=== PATIENT | male | born 1975 | race Caucasian/White ===

== ENCOUNTER 2020-07-31 08:57 | Outpatient (REF) | payer OTHER, SELFPAY ==
[2020-07-31 09:38] LABS: MANUAL DIFF FLAG NO
[2020-07-31 09:41] LABS: Basophils Percent Auto 0.4 % (0-2); Eosinophils Absolute Auto 0.3 X10*3/uL (0.0-0.4); Hematocrit 45.2 % (42-52); Hemoglobin 15.3 g/dl (14.0-18.0); Imm Gran Abs Auto 0.04 X10*3/uL (0.00-0.03); Imm Gran Pct Auto 0.5 % (0.0-0.4); Lymphocytes Absolute Auto 3.2 X10*3/uL (1.2-4.9); Lymphocytes Percent Auto 37.6 % (20-40); Mean Corpuscular HGB Conc 33.8 g/dl (31.0-36.0); Mean Corpuscular Hemoglobin 29.4 pg (27.0-33.0); Mean Corpuscular Volume 86.8 fL (80-98); Mean Platelet Volume 11.5 fL (9.4-12.4); Monocytes Absolute Auto 0.6 X10*3/uL (0.1-1.2); Monocytes Percent Auto 6.6 % (2-11); Neutrophils Absolute Auto 4.4 X10*3/uL (2.0-8.3); Neutrophils Percent Auto 51.9 % (45-73); Platelet Count 227 X10*3/uL (160-400); Red Blood Count 5.21 X10*6/uL (4.60-5.80); Red Cell Distribution Width 13.1 % (11.0-16.0); White Blood Count 8.4 X10*3/uL (4.8-10.8)
[2020-07-31 10:21] LABS: Alanine Aminotransferase 47 U/L (0-40); Albumin Level 4.3 g/dL (3.5-5.0); Alkaline Phosphatase 56 U/L (39-117); Anion Gap 11 (12-20); Aspartate Amino Transferase 26 U/L (5-37); Bilirubin Total 0.8 mg/dL (0.0-1.0); Blood Urea Nitrogen 11 mg/dL (9-16); Calcium 8.7 mg/dL (8.4-10.2); Carbon Dioxide 28 mmol/L (22-29); Chloride 104 mmol/L (96-108); Cholesterol 164 mg/dL; Estimated Glomerular Filt Rate > 60; Glucose Random 131 mg/dL (60-115); HDL Cholesterol 34 mg/dL; LDL Cholesterol Calculated 90 mg/dl; Potassium 4.2 mmol/l (3.3-5.1); Sodium 139 mmol/L (135-145); Total Protein 7.3 g/dL (6.5-8.0); Triglycerides 201 mg/dL
[2020-07-31 10:35] LABS: Free T4 (Free Thyroxine) 1.06 ng/dL (0.71-1.85); Thyroid Stimulating Hormone 0.86 uIU/mL (0.32-4.0)
[2020-07-31 10:46] LABS: HBS Num1 2.84 mIU/mL (0-7.99); HBc Num1 0.04 S/CO (0.00-0.79); HBsAGNum1 0.19 S/CO (0.00-0.99); Hepatitis B Core Antibody Nonreactive (Nonreactive); Hepatitis B Surface Antigen Negative (Negative); ~HepC Num1 0.07 S/CO (0.00-0.79); ~Hepatitis B Surface Antibody NONREACTIVE (Nonreactive); ~Hepatitis C Antibody Nonreactive (Nonreactive)
== END 2020-07-31 08:58 | disposition home or self-care (01) ==
LOC: HO.LAB 08:57
PROVIDERS: Visit Provider Internal Medicine
DX: N28.9 Disorder of kidney and ureter, unspecified (principal); R73.02 Impaired glucose tolerance (oral); E78.1 Pure hyperglyceridemia; E78.00 Pure hypercholesterolemia, unspecified; R79.89 Other specified abnormal findings of blood chemistry
CPT/HCPCS: 36415; 80053; 80061; 84439; 84443; 85025; 86704; 86706; 86803; 87340

== ENCOUNTER 2020-09-04 08:07 | Outpatient (REF) | payer OTHER, SELFPAY ==
--- NOTE | 2020-09-04 08:14 | US_ITS ---
EXAMINATION: US COMPLETE ABDOMEN WITH LIVER ELASTOGRAPHY CLINICAL INFORMATION: Abnormal liver function tests COMPARISON: None. TECHNIQUE: Real-time imaging of the abdominal viscera. Noninvasive ultrasound liver fibrosis assessment is performed using Lorie ElastPQ point quantification shear wave elastography (pSWE) with a 5 MHz transducer. Multiple elastography samples are obtained. FINDINGS: PANCREAS: The head of the pancreas is normal-appearing. The body and tail are not well visualized due to bowel gas. ABDOMINAL AORTA: Not well visualized due to bowel gas INFERIOR VENA CAVA: Visualized portions are normal. LIVER: Liver echotexture is increased probably representing fatty infiltration. There is a hypoechoic area adjacent to the gallbladder, characteristic location of focal fatty sparing. No focal lesion or intrahepatic biliary duct dilatation. The liver is normal in size and shape. The right lobe measures 16 cm in length. The left lobe measures 13 cm in length. The main portal vein is patent with appropriate hepatopedal flow Shear wave elastography provides a median stiffness of 1.3 m/s (reference: normal median stiffness is 0.81 - 1.22 m/s). The IQR/median stiffness to assess sampling precision is 0.3 (reference: optimal IQR/median stiffness is under 0.3). GALLBLADDER: Normal. The gallbladder is physiologically distended without evidence of stones, sludge, polyps, wall thickening or pericholecystic fluid. COMMON BILE DUCT: Normal in caliber measuring 0.4 cm in diameter. RIGHT KIDNEY: Normal. No hydronephrosis. No renal calculi or focal parenchymal lesions. The kidney measures 12.9 cm in maximum dimension. LEFT KIDNEY: Normal. No hydronephrosis. No renal calculi or focal parenchymal lesions. The kidney measures 11.3 cm in maximum dimension. SPLEEN: Normal. The spleen measures 10.5 cm in maximum dimension. FREE FLUID: None. US/US abdomen comp w elastography IMPRESSION: 1. Impression: Echogenic liver suggestive of fatty infiltration. Limited visualization of the pancreas and aorta. 2. Elastography: Metavir score F0 to F1 suggestive of normal to mild increased risk of developing liver fibrosis.
== END 2020-09-04 08:08 | disposition home or self-care (01) ==
LOC: HO.US 08:07
PROVIDERS: Visit Provider Internal Medicine
DX: R79.89 Other specified abnormal findings of blood chemistry (principal)
CPT/HCPCS: 76705; 76981

== ENCOUNTER 2020-09-17 14:35 | Outpatient (REF) | payer OTHER, SELFPAY ==
[2020-09-17 15:50] LABS: MANUAL DIFF FLAG NO
[2020-09-17 16:02] LABS: Basophils Percent Auto 0.4 % (0-2); Eosinophils Absolute Auto 0.3 X10*3/uL (0.0-0.4); Eosinophils Percent Auto 3.1 % (0-4); Hematocrit 46.2 % (42-52); Hemoglobin 15.4 g/dl (14.0-18.0); Imm Gran Abs Auto 0.03 X10*3/uL (0.00-0.03); Imm Gran Pct Auto 0.3 % (0.0-0.4); Lymphocytes Absolute Auto 3.1 X10*3/uL (1.2-4.9); Lymphocytes Percent Auto 34.3 % (20-40); Mean Corpuscular HGB Conc 33.3 g/dl (31.0-36.0); Mean Platelet Volume 12.1 fL (9.4-12.4); Monocytes Absolute Auto 0.7 X10*3/uL (0.1-1.2); Monocytes Percent Auto 7.4 % (2-11); Neutrophils Percent Auto 54.5 % (45-73); Platelet Count 236 X10*3/uL (160-400); Red Blood Count 5.31 X10*6/uL (4.60-5.80); Red Cell Distribution Width 12.6 % (11.0-16.0); White Blood Count 9.1 X10*3/uL (4.8-10.8)
[2020-09-18 09:33] LABS: Immunoglobulin E 111 kU/L (<OR=114)
== END 2020-09-17 14:36 | disposition home or self-care (01) ==
LOC: HO.LAB 14:35
PROVIDERS: PCP Internal Medicine; Visit Provider Internal Medicine Pulmonary Disease
DX: Z91.09 Other allergy status, other than to drugs and biological substances (principal)
CPT/HCPCS: 36415; 82785; 85025; 86003

== ENCOUNTER 2020-10-07 16:11 | Outpatient (REF) | payer OTHER, SELFPAY ==
--- NOTE | ~2020-10-07 | CT_ITS ---
EXAMINATION: CT CHEST WITHOUT CONTRAST CLINICAL INFORMATION: Solitary pulmonary nodule. COMPARISON: Chest 01/14/2020. TECHNIQUE: Multidetector volumetric CT imaging of the chest was done. Axial MIP volume rendering provided. Sagittal and coronal reformatted images were obtained. This CT examination was performed using dose optimization techniques as appropriate, variously including the following: *Automated exposure control *Adjustment of mA and/or kV according to patient size (this includes techniques or standardized protocols for targeted exams where dose is matched to indication/reason for exam; i.e. extremities or head) *Use of iterative reconstruction technique DLP: 239 mGy-cm FINDINGS: IMPROVEMENT SPEC: Unremarkable chest. LUNGS: The lungs are well expanded with minimal linear atelectatic changes left CP angle. No acute pneumonic consolidation, mass or pelvic nodules visualized. MEDIASTINUM: The thyroid lobes are somewhat symmetrical without any focal lesion seen. The central trachea and bronchi are widely patent. The heart size and great vessels are normal caliber. There is no pericardial effusion. No abnormal mediastinal mass or lymphadenopathy seen. PLEURA: There is no pleural effusion. No pleural mass or thickening. AXILLA: No lymphadenopathy. UPPER ABDOMEN: Visualized liver, spleen, pancreas and bilateral adrenal glands are unremarkable. OSSEOUS STRUCTURES: No lytic or sclerotic process seen. There is mild ventral degenerative spurring. CT/CT chest wo con IMPRESSION: Minimal atelectatic changes left CP angle. Otherwise unremarkable CT chest exam.
== END 2020-10-07 16:12 | disposition home or self-care (01) ==
LOC: HO.CT 16:11
PROVIDERS: Visit Provider Internal Medicine Pulmonary Disease
DX: R91.1 Solitary pulmonary nodule (principal)
CPT/HCPCS: 71250

== ENCOUNTER 2020-10-25 14:30 | Outpatient (REF) | payer OTHER, SELFPAY ==
--- NOTE | 2020-10-25 17:36 | PFT_ITS ---
Forced vital capacity is moderately decreased. FEV1, [id number] and MVV are markedly decreased. Post bronchodilator therapy, there is significant improvement in FEV1, [id number], and MVV. Total lung capacity normal. Residual volume moderately increased. Diffusion capacity is normal. CONCLUSION: Severe obstructive airway disorder. Partial reversibility after bronchodilator therapy is noted. Findings are consistent with asthma/COPD overlap syndrome. MD NEHAL Nascimento/MODL / [id number]
== END 2020-10-25 14:31 | disposition home or self-care (01) ==
LOC: HO.RESP 14:30
PROVIDERS: PCP Internal Medicine; Visit Provider Internal Medicine Pulmonary Disease
DX: J45.909 Unspecified asthma, uncomplicated (principal)
CPT/HCPCS: 94060; 94727; 94729

== ENCOUNTER 2020-11-04 09:17 | Outpatient (REF) | payer OTHER, SELFPAY | END 2020-11-04 09:18 | disposition home or self-care (01) | LOC: HO.MDS 09:17 | PROVIDERS: Visit Provider Internal Medicine Pulmonary Disease | DX: J45.50 Severe persistent asthma, uncomplicated (principal) | CPT/HCPCS: 96372; J2357 ==

== ENCOUNTER 2020-12-11 12:49 | Outpatient (REF) | payer OTHER, SELFPAY | END 2020-12-11 12:50 | disposition home or self-care (01) | LOC: HO.MDS 12:49 | PROVIDERS: PCP Internal Medicine; Visit Provider Internal Medicine Pulmonary Disease | DX: J45.50 Severe persistent asthma, uncomplicated (principal) | CPT/HCPCS: 96372; J2357 ==

== ENCOUNTER 2020-12-25 14:41 | Outpatient (REF) | payer OTHER, SELFPAY | END 2020-12-25 14:42 | disposition home or self-care (01) | LOC: HO.MDS 14:41 | PROVIDERS: PCP Internal Medicine; Visit Provider Internal Medicine Pulmonary Disease | DX: J45.50 Severe persistent asthma, uncomplicated (principal) | CPT/HCPCS: 96372; J2357 ==

== ENCOUNTER 2021-01-08 12:41 | Outpatient (REF) | payer OTHER, SELFPAY | END 2021-01-08 12:42 | disposition home or self-care (01) | LOC: HO.MDS 12:41 | PROVIDERS: PCP Internal Medicine; Visit Provider Internal Medicine Pulmonary Disease | DX: J45.50 Severe persistent asthma, uncomplicated (principal) | CPT/HCPCS: 96372; J2357 ==

== ENCOUNTER 2021-03-24 23:49 | Emergency (ER) | payer SELFPAY ==
--- NOTE | 2021-03-24 | ECG_ITS ---
Test Reason : CP Blood Pressure : / mmHG Vent. Rate : 073 BPM Atrial Rate : 073 BPM P-R Int : 204 ms QRS Dur : 092 ms QT Int : 406 ms P-R-T Axes : 033 -12 012 degrees QTc Int : 447 ms Sinus rhythm with occasional Premature ventricular complexes Otherwise normal ECG When compared to the previous EKG of 09 jan 2020, PVC now present Referred By: Generic ED Physician Electronically Signed By:DAVIS KENYON
--- NOTE | ~2021-03-24 | XR_ITS ---
EXAMINATION: XR CHEST CLINICAL INFORMATION: Chest pain COMPARISON: 11/09/2019 TECHNIQUE: Frontal view of the chest was obtained. FINDINGS: Normal symmetric lung volumes. No parenchymal consolidation. No pleural effusion. No pneumothorax. Cardiomediastinal silhouette and pulmonary vascularity are within normal limits. No acute osseous abnormalities. XR/XR chest 1V IMPRESSION: Unremarkable examination.
[2021-03-24 23:53] VITALS: BP 157/102; PULSE 74; RESP 18; TEMP 36.6; O2SAT 98; BMI 41.1
[2021-03-25] VITALS (7 sets, daily range): BP systolic 140–159; BP diastolic 85–96; PULSE 69–75; RESP 12–18; O2SAT 96–100
[2021-03-25 02:17] LABS: Basophils Percent Auto 0.3 % (0-2); Eosinophils Absolute Auto 0.2 X10*3/uL (0.0-0.4); Eosinophils Percent Auto 1.5 % (0-4); Hematocrit 45.7 % (42-52); Hemoglobin 15.4 g/dl (14.0-18.0); Imm Gran Abs Auto 0.11 X10*3/uL (0.00-0.03); Lymphocytes Absolute Auto 3.5 X10*3/uL (1.2-4.9); Lymphocytes Percent Auto 30.8 % (20-40); MANUAL DIFF FLAG NO; Mean Corpuscular HGB Conc 33.7 g/dl (31.0-36.0); Mean Corpuscular Hemoglobin 28.8 pg (27.0-33.0); Mean Corpuscular Volume 85.4 fL (80-98); Mean Platelet Volume 11.2 fL (9.4-12.4); Monocytes Absolute Auto 0.7 X10*3/uL (0.1-1.2); Monocytes Percent Auto 6.5 % (2-11); Neutrophils Absolute Auto 6.9 X10*3/uL (2.0-8.3); Neutrophils Percent Auto 59.9 % (45-73); Platelet Count 230 X10*3/uL (160-400); Red Blood Count 5.35 X10*6/uL (4.60-5.80); Red Cell Distribution Width 12.9 % (11.0-16.0); White Blood Count 11.4 X10*3/uL (4.8-10.8)
[2021-03-25 02:40] LABS: Troponin-I High Sensitivity 4.2 ng/L (<3.5-35.0)
[2021-03-25 02:54] LABS: Anion Gap 10 (12-20); Blood Urea Nitrogen 14 mg/dL (9-16); Calcium 9.3 mg/dL (8.4-10.2); Carbon Dioxide 30 mmol/L (22-29); Chloride 103 mmol/L (96-108); Creatinine Clr Calc Pharmacy 108.3; Estimated Glomerular Filt Rate > 60; Glucose Random 165 mg/dL (60-115); Potassium 4.5 mmol/L (3.3-5.1); Sodium 138 mmol/L (135-145)
--- NOTE | 2021-03-25 03:11 | PC.NURSE ---
electrocardiogram technician at bedside for orthos and DDimer.
[2021-03-25 03:14] LABS: Alanine Aminotransferase 35 U/L (0-40); Albumin Level 4.2 g/dL (3.5-5.0); Alkaline Phosphatase 65 U/L (39-117); Aspartate Amino Transferase 20 U/L (5-37); Bilirubin Direct 0.2 mg/dL (0.0-0.5); Bilirubin Total 0.4 mg/dL (0.0-1.0); Total Protein 7.5 g/dL (6.5-8.0)
[2021-03-25 03:26] LABS: D Dimer 218 NG/ML
--- NOTE | 2021-03-25 03:28 | ED.CHESTPAIN ---
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 This is been associated with 7/10 non radiating chest pain this is cry but is pressure and worsens with deep inspiration movement as well as reproducible on palpation. This is not been associated with any shortness of breath, new cough, fevers, chills, or GI symptoms. However, patient does report that he is somewhat nauseous with the lightheadedness. 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 Related Data Home Medications Medication Instructions Recorded Confirmed albuterol sulfate 90 mcg/actuation 2 puff INHALATION Q4-6H PRN 07/23/20 10/25/20 aerosol inhaler Previous Rx's Medication Instructions Recorded albuterol sulfate 2.5 mg INHALATION Q6H #180 ml 07/23/20 budesonide-formoterol HFA 80 2 puff INHALATION BID #10.2 g 07/23/20 mcg-4.5 mcg/actuation aerosol inhaler omalizumab 75 mg/0.5 mL 225 mg SUBCUT Q2W 28 Days #3 ml 10/02/20 subcutaneous syringe Allergies Allergy/AdvReac Type Severity Reaction Status Date / Time Penicillins [PCN] Allergy Unknown Anaphylaxis Verified 10/25/20 16:31 Review of Systems Review of Systems: Pertinent positives and negatives as stated in HPI 10 point review of systems is otherwise negative. [facility] Past Medical History Source: nursing notes reviewed Medical History Erectile dysfunction Fatty liver Hypertriglyceridemia Impaired glucose tolerance Obesity (BMI 30-39.9) Pulmonary nodule Surgical History H/O knee surgery Family History Family History Father Brain tumor Diabetes Hypertension Mother History of high blood pressure Hypertension Diabetes Daughter In good health Social History Social History Alcohol intake: current Alcohol intake frequency: holidays/special occasions only Alcohol type: beer Advance Directives: No Advance Directives Information Provided: No Physical Exam Vital Signs: Vital Signs: Last Vital Signs Temp 97.8 F 03/24/21 23:53 Pulse 73 03/25/21 04:59 Resp 14 03/25/21 04:59 BP 146/89 H 03/25/21 04:59 Pulse Ox 98 03/25/21 04:59 Body Mass Index 41.1 VITAL SIGNS: Reviewed. GENERAL: Well developed, well nourished, in no acute distress. HEAD: Normocephalic/atraumatic EYES: PERRLA, EOMI EARS: Ext canals without abnormality, TMs non-bulging and non-erythematous NOSE: Nares patent bilateral OROPHARYNX: no oral lesions noted, posterior pharynx clear NECK: Supple, no adenopathy LUNGS: Normal breath sounds. No adventitious sounds or accessory muscle use. SpO2<96> CARDIOVASCULAR: Regular rate and rhythm without noted murmurs, no JVD or lower extremity edema. ABDOMEN: Obese, Soft, non-tender, non-distended with bowel sounds. SKIN: Inspection of the skin reveals no rashes NEUROLOGIC: Alert and oriented x 4. Strength and sensation to light touch were grossly intact x 4, no facial asymmetry, no pronator drift, cranial nerves 2-12 are grossly intact.. Course Course Course Narrative: This is a 45-year-old male with history and clinical presentation suggestive of possible dehydration, but will rule out cardiopulmonary etiologies given body habitus. Low clinical suspicion for any intracranial pathologies as there are no focal findings to suggest or explain patient's dizziness. Review of all investigations negative for acute findings, orthostatics are negative, and serial troponins although detectable are not elevated and there are no acute changes on his EKG. Patient was informed of all results instructed to increase his fluid hydration and follow-up with his primary care provider. He was otherwise discharged in stable condition. MDM - Chest Pain Lab Data Result diagrams: 03/25/21 02:11 03/25/21 02:11 Labs: Lab Results 03/25/21 03/25/21 03/25/21 Range/Units 02:11 02:11 02:11 WBC 11.4 H (4.8-10.8) X10*3/uL RBC 5.35 (4.60-5.80) X10*6/uL Hgb 15.4 (14.0-18.0) g/dl Hct 45.7 (42-52) % MCV 85.4 (80-98) fL MCH 28.8 (27.0-33.0) pg MCHC 33.7 (31.0-36.0) g/dl RDW 12.9 (11.0-16.0) % Plt Count 230 (160-400) X10*3/uL MPV 11.2 (9.4-12.4) fL Immature Gran % (Auto) 1.0 H (0.0-0.4) % Neut % (Auto) 59.9 (45-73) % Lymph % (Auto) 30.8 (20-40) % Bullitt % (Auto) 6.5 (2-11) % Eos % (Auto) 1.5 (0-4) % Baso % (Auto) 0.3 (0-2) % Lymph # (Auto) 3.5 (1.2-4.9) X10*3/uL Bullitt # (Auto) 0.7 (0.1-1.2) X10*3/uL Eos # (Auto) 0.2 (0.0-0.4) X10*3/uL Baso # (Auto) 0.0 (0.0-0.2) X10*3/uL Abs Immat Gran (auto) 0.11 H (0.00-0.03) X10*3/uL Absolute Neuts (auto) 6.9 (2.0-8.3) X10*3/uL Absolute Nucleated RBC 0.000 (0.0-0.012) X10*3/uL Nucleated RBC % (auto) 0.0 (0.0-0.2) /100WBC D-Dimer NG/ML Sodium 138 (135-145) mmol/L Potassium 4.5 (3.3-5.1) mmol/L Chloride 103 (96-108) mmol/L Carbon Dioxide 30 H (22-29) mmol/L Anion Gap 10 L (12-20) BUN 14 (9-16) mg/dL Creatinine 1.12 (0.5-1.4) mg/dL Estim Creat Clear Calc 108.3 Estimated GFR > 60 Random Glucose 165 H (60-115) mg/dL Calcium 9.3 D (8.4-10.2) mg/dL Total Bilirubin 0.4 (0.0-1.0) mg/dL Direct Bilirubin 0.2 (0.0-0.5) mg/dL AST 20 (5-37) U/L ALT 35 (0-40) U/L Alkaline Phosphatase 65 (39-117) U/L Troponin I High Sens 4.2 (<3.5-35.0) ng/L Total Protein 7.5 (6.5-8.0) g/dL Albumin 4.2 (3.5-5.0) g/dL 03/25/21 03/25/21 Range/Units 03:13 04:58 WBC (4.8-10.8) X10*3/uL RBC (4.60-5.80) X10*6/uL Hgb (14.0-18.0) g/dl Hct (42-52) % MCV (80-98) fL MCH (27.0-33.0) pg MCHC (31.0-36.0) g/dl RDW (11.0-16.0) % Plt Count (160-400) X10*3/uL MPV (9.4-12.4) fL Immature Gran % (Auto) (0.0-0.4) % Neut % (Auto) (45-73) % Lymph % (Auto) (20-40) % Bullitt % (Auto) (2-11) % Eos % (Auto) (0-4) % Baso % (Auto) (0-2) % Lymph # (Auto) (1.2-4.9) X10*3/uL Bullitt # (Auto) (0.1-1.2) X10*3/uL Eos # (Auto) (0.0-0.4) X10*3/uL Baso # (Auto) (0.0-0.2) X10*3/uL Abs Immat Gran (auto) (0.00-0.03) X10*3/uL Absolute Neuts (auto) (2.0-8.3) X10*3/uL Absolute Nucleated RBC (0.0-0.012) X10*3/uL Nucleated RBC % (auto) (0.0-0.2) /100WBC D-Dimer 218 NG/ML Sodium (135-145) mmol/L Potassium (3.3-5.1) mmol/L Chloride (96-108) mmol/L Carbon Dioxide (22-29) mmol/L Anion Gap (12-20) BUN (9-16) mg/dL Creatinine (0.5-1.4) mg/dL Estim Creat Clear Calc Estimated GFR Random Glucose (60-115) mg/dL Calcium (8.4-10.2) mg/dL Total Bilirubin (0.0-1.0) mg/dL Direct Bilirubin (0.0-0.5) mg/dL AST (5-37) U/L ALT (0-40) U/L Alkaline Phosphatase (39-117) U/L Troponin I High Sens 4.6 (<3.5-35.0) ng/L Total Protein (6.5-8.0) g/dL Albumin (3.5-5.0) g/dL Discharge Plan Discharge Clinical Impression: Atypical chest pain, GERD (gastroesophageal reflux disease) Patient Disposition: Home, Self-Care Instructions: Diet for Stomach Ulcers and Gastritis (ED), Gastroesophageal Reflux Disease (ED) Additional Instructions: 1. Resume all home medications as prescribed. 2. Follow-up with your primary care provider by calling the office this morning to set up an appointment for re-evaluation further outpatient management. Return to the ER for acute worsening of symptoms. Prescriptions: No Action Xolair 75 mg/0.5 mL syringe 225 mg subcut Q2W 28 Days Qty: 3 RF: 12 albuterol sulfate [ProAir HFA] 90 mcg/actuation HFA aerosol inhaler 2 puff inhalation Q4-6H PRNRF: 0 albuterol sulfate 2.5 mg /3 mL (0.083 %) solution for nebulization 2.5 mg inhalation Q6H Qty: 180 RF: 0 budesonide-formoterol [Symbicort] 80-4.5 mcg/actuation HFA aerosol inhaler 2 puff inhalation BID Qty: 10.2 RF: 3 Referrals: Po,William Garcia MD [Primary Care Provider] - 2 days
--- NOTE | 2021-03-25 05:01 | PC.NURSE ---
Repeat Troponin obtained and sent.
[2021-03-25 05:26] LABS: Troponin-I High Sensitivity 4.6 ng/L (<3.5-35.0)
== END 2021-03-25 06:12 | disposition home or self-care (01) ==
PROVIDERS: Emergency Provider Student in an Organized Health Care Education/Training Program; PCP Internal Medicine
DX: R07.89 Other chest pain (principal); K21.9 Gastro-esophageal reflux disease without esophagitis; E66.9 Obesity, unspecified
CPT/HCPCS: 36415; 71045; 80048; 80076; 84484; 85025; 85379; 93005; 99284

== ENCOUNTER 2024-05-26 09:57 | Outpatient (REF) | payer SELFPAY ==
[2024-05-26 12:24] LABS: Alanine Aminotransferase 39 U/L (0-40); Albumin Level 4.3 g/dL (3.5-5.0); Alkaline Phosphatase 44 U/L (39-117); Anion Gap 11 (12-20); Aspartate Amino Transferase 23 U/L (5-37); Bilirubin Total 0.4 mg/dL (0.0-1.0); Blood Urea Nitrogen 13 mg/dL (9-16); Calcium 9.4 mg/dL (8.4-10.2); Carbon Dioxide 25 mmol/L (22-29); Chloride 108 mmol/L (96-108); Cholesterol 196 mg/dL (<200); Estimated Glomerular Filt Rate > 60; Glucose Random 124 mg/dL (60-115); HDL Cholesterol 35 mg/dL (>40); LDL Cholesterol Calculated 143 mg/dL (<100); Potassium 4.1 mmol/L (3.3-5.1); Sodium 140 mmol/L (135-145); Total Protein 7.5 g/dL (6.5-8.0); Triglycerides 90 mg/dL (<150)
[2024-05-26 12:47] LABS: Creatinine Urine 155.23 mg/dL; Microalbum/Creatinine Ratio Ur 22.5 ug/mg cr (<30)
== END 2024-05-26 09:58 | disposition home or self-care (01) ==
LOC: HO.HHCL 09:57
PROVIDERS: Visit Provider General Practice
DX: E11.9 Type 2 diabetes mellitus without complications (principal)
CPT/HCPCS: 36415; 80053; 80061; 82043; 82570

== ENCOUNTER 2024-12-08 16:43 | Outpatient (REF) | payer SELFPAY ==
--- OUTSIDE RECORDS SUMMARY | 2024-12-08 16:46 | XMS_ITS | Clinical Summary ---
Author Organization Formerly [facility] Address [address] [place] [address] Care Team Providers Care Carpet Installer Helper Name Role Phone Ellis Roger MD Unavailable [phone] Allergies Active Allergy Reactions Criticality Noted Date Comments Penicillins Shortness Of Breath High 04/03/2021 Medications Medication Sig Dispensed Refills Start Date End Date Status albuterol (PROVENTIL HFA; VENTOLIN HFA) 108 (90 Base) MCG/ACT inhalerIndications:M ild intermittent asthma without complication Inhale 2 puffs 4 times daily (every 6 hours) as needed for wheezing or shortness of breath. Do not start before February 02, 2024. 1 each 1 02/02/2024 Active aspirin enteric coated (ECOTRIN LOW STRENGTH) 81 MG EC tabletIndications:Ch est discomfort Take 1 tablet (81 mg total) by mouth daily. Do not start before February 02, 2024. 30 tablet 02/02/2024 Active ipratropium-albutero l (DUONEB) 0.5-2.5 mg/3 mL nebulizer solutionIndications: Mild intermittent asthma without complication,Intermi ttent asthma without complication, unspecified asthma severity Take 3 mL by nebulization 4 (four) times a day. Do not start before February 02, 2024. 90 mL 02/02/2024 Active Multiple Vitamin tabletIndications:Ty pe 2 diabetes mellitus with hyperglycemia, without long-term current use of insulin (HCC) Take 1 tablet by mouth daily. Do not start before February 02, 2024. 30 tablet 02/02/2024 Active PANTOprazole (PROTONIX) 40 MG EC tabletIndications:Ch est discomfort Take 1 tablet (40 mg total) by mouth every morning before breakfast. Do not start before February 02, 2024. 30 tablet 02/02/2024 Active budesonide-formotero l (SYMBICORT) 160-4.5 MCG/ACT inhalerIndications:I ntermittent asthma without complication, unspecified asthma severity Inhale 2 puffs 2 (two) times a day. 6 g 02/01/2024 Active predniSONE (DELTASONE) 20 MG tabletIndications:In termittent asthma without complication, unspecified asthma severity Take 2 tablets (40 mg total) by mouth daily. With food. 10 tablet 02/01/2024 Active metFORMIN (GLUCOPHAGE) 1000 MG tabletIndications:Ty pe 2 diabetes mellitus with hyperglycemia, without long-term current use of insulin (HCC) Take 1 tablet (1,000 mg total) by mouth 2 (two) times a day with meals. 60 tablet 04/03/2024 Active valsartan (DIOVAN) 80 MG tabletIndications:Es sential hypertension TAKE 1 TABLET BY MOUTH EVERY DAY 15 tablet 06/07/2024 Active fenofibrate (LOFIBRA) 54 MG tabletIndications:Mi xed hyperlipidemia TAKE 1 TABLET BY MOUTH EVERY DAY 30 tablet 06/22/2024 Active doxycycline (VIBRA-TABS) 100 MG tablet 1 tablet (100 mg total). 05/26/2024 Active Active Problems Problem Noted Date Diagnosed Date Moderate persistent asthma with exacerbation 10/2023 Hyponatremia 01/31/2024 GUILLE (acute kidney injury) 01/31/2024 Mixed hyperlipidemia 01/31/2024 Gastroesophageal reflux disease without esophagi tis 01/31/2024 Essential hypertension 01/31/2024 Verruca vulgaris of lower extremity 03/11/2023 Right thyroid nodule 07/03/2022 Mixed hyperlipidemia 07/03/2022 Snoring 07/03/2022 Paresthesia of left arm 2022 Chest discomfort 2022 Diabetes mellitus type II, non insulin dependent 2022 Scrotum, abscess 04/03/2021 Hyperglycemia 04/03/2021 Asthma 04/03/2021 Insomnia 04/03/2021 Skin lesion 04/03/2021 Resolved Problems Problem Noted Date Diagnosed Date Resolved Date Sepsis 01/31/2024 03/06/2024 Right middle lobe pneumonia 01/31/2024 03/06/2024 Sepsis 04/03/2021 11/11/2023 Encounters Date Type Department Care Team Description 09/24/[address] [id number] Edelmira Pandya MD Mixed hyperlipidemia from Last 3 Months Immunizations Name Administration Dates Next Due Covid-19 mRNA Bivalent Vacci ne - Pfizer 30 mcg/0.3mL 12+ 07/03/2022 Family History Medical History Relation Name Comments Diabetes Brother Hypertension Brother Brain tumor Father Tello Asthma Mother [place] Diabetes Mother [place] Hypertension Mother [place] Cancer Paternal Aunt metastatic can cer Relation Name Status Comments Brother Alive Father Tello Mother Ruba Paternal Aunt Social History Tobacco Use Types Packs/Day Years Used Date Smoking Tobacco: Former Smokeless Tobacco: Never Tobacco Cessation:Counseling Given: Not Answered Comments:Quit 10 years ago Alcohol Use Standard Drinks/Week Comments Not Currently 0 (1 standard drink = 0.6 oz pur e alcohol) [facility] Utilities Answer Date Recorded In the past 12 months has [employer], gas, oil, or water [employer] threatened to shut off services in your home? No 01/31/2024 AUDIT-C Answer Date Recorded Q1: How often do you have a drink containing alc ohol? Monthly or less 01/31/2024 Q2: How many drinks containi ng alcohol do you have on a typical day when you are drinking? 1 or 2 01/31/2024 Q3: How often do you have si x or more drinks on one occasion? Never 01/31/2024 Overall Financial Resource Strain (CARDIA) Answe r Date Recorded How hard is it for you to pa y for the very basics like food, housing, medical care, and heating? Not hard at all 01/31/2024 PHQ-2 Answer Date Recorded PHQ-2 Total Score 0 04/22/2021 Hunger Vital Sign Answer Date Recorded Within the past 12 months, y ou worried that your food would run out before you got the money to buy more. Never true 01/31/20 24 Within the past 12 months, t he food you bought just didn't last and you didn't have money to get more. Never true 01/31/2024 PRAPARE - Transportation Answer Date Re corded In the past 12 months, has l ack of transportation kept you from medical appointments or from getting medications? No 10/2023 In the past 12 months, has l ack of transportation kept you from meetings, work, or from getting things needed for daily living? No 01/31/2024 Housing Stability Vital Sign Answer Mychal e Recorded In the last 12 months, was t here a time when you were not able to pay the mortgage or rent on time? No 01/31/2024 [address] Lived in the Last Year Not on f ile 01/31/2024 In the last 12 months, was t here a time when you did not have a steady place to sleep or slept in a usp (including now)? No 01/31/2024 Sex and Gender Information Value Date Recorded Sex Assigned at Male 02/08/2023 3:06 PM EDT Gender Identity Male 02/08/2023 3:06 PM EDT Sexual Orientation Other 08/19/2023 9: 14 AM EST Last Filed Vital Signs Vital Sign Reading Time Taken Comments Blood Pressure 143/83 02/01/2024 8:32 AM EDT Pulse 80 02/01/2024 8:00 AM EDT Temperature 36.6 ??C (97.9 ??F) 02/01/2024 8:00 AM ED T Respiratory Rate 18 02/01/2024 8:00 AM EDT Oxygen Saturation 95% 02/01/2024 8:00 AM EDT Inhaled Oxygen Concentration - - Weight 115 kg (254 lb) 07/28/2024 2:38 PM EST Height 172.7 cm (5' 8 ) 07/28/2024 2:38 PM EST Body Mass Index 38.62 07/28/2024 2:38 PM EST Plan of Treatment Health Maintenance Due Date Last Done Comments Foot Exam 1987 DTaP/Tdap/Td Vaccines (1 - Tdap) 1996 Hepatitis B Vaccines (1 of 3 - 19+ 3-dose series) 1996 Pneumococcal Vaccine: Pediat juani (0-5 Years) and At-Risk Patients (6 to 49 Years) (1 of 2 - PCV) 1996 Ophthalmology Exam 08/06/2022 08/06/2021 Lipid Panel 09/18/2023 09/18/2022, 06/12/2022 Microalbumin/Creatinine Rati o Urine 09/18/2023 09/18/2022 Influenza Vaccine 03/30/2024 COVID-19 Vaccine (2023-09 5 season) 2024 07/03/2022, 07/11/2021, 06/13/2021 Hemoglobin A1C 08/01/2024 01/31/2024, 06/0 04/2023, 09/18/2022, Additional history exists Creatinine with GFR 01/30/2025 01/31/2024, 01/30/2024, 09/24/2023, Additional history exists Colonoscopy 01/06/2034 01/07/2024 Hepatitis C Virus Screening Completed 09/18/2022 HIV Screening Discontinued Procedures Procedure Name Priority Date/Time Associated Diagnosis Comments HEMOGLOBIN A1C WITH ESTIMATED AVERAGE GLUCOSE Routine 01/31/2024 6:55 AM EDT BASIC METABOLIC PANEL Routine 01/31/2024 6:55 AM EDT MICROALBUMIN, CREATININE, URINE, RANDOM Routine 09/18/2022 10:05 AM EST LIPID PANEL REFLEX DIRECT LDL Routine 09/18/2022 10:05 AM EST Mixed hyperlipidemia HEPATITIS C VIRUS (HCV) ANTIBODY Routine 09/18/2022 10:05 AM EST HX OPHTHALMOLOGY TESTING PROCEDURES Routine 08/06/2021 from Last 3 Months or Most Recently Relevant to Health Maintenance Results * (ABNORMAL) Hemoglobin A1c with Estimated Average Glucose (01/31/2024 6:55 AM EDT) Hemoglobin A1C 8.3(H) <5.7 % 01/31/2024 11:42 AM EDT [facility] Comment: A1c% ? Interpretation 5.7 - 6.0 ?Increase risk of diabetes 6.1 - 6.4 ?Higher risk of diabetes > or = 6.5 ?? Consistent with diabetes Diabetes Care, 33(Supp 1):S1-S61, 2010 Estimated Average Glucose 192 mg/dL 01/31/2024 11:42 AM EDT [facility] Blood specimen (specimen) Blood specimen / Unknown 01/31/2024 6:55 AM EDT 01/31/2024 7:37 AM EDT Ky Adam DO LAB BLOOD ORDERABLES [address] [address], [address] [address] * (ABNORMAL) Basic Metabolic Panel (01/31/2024 6:55 AM EDT) Glucose 261(H) 65 - 99 mg/dL 01/31/2024 8:47 AM [facility] Comment:Fasting: <100 mg/dL, Non-Fasting: <200 mg/dL (ADA 2004) Blood Urea Nitrogen (BUN) 16 8 - 21 mg/dL 01/31/2024 8:47 AM [facility] Creatinine 1.2 0.5 - 1.3 mg/dL 01/31/2024 8:47 AM [facility] eGFR 76 >59 01/31/2024 8:47 AM [facility] Comment:CKD-EPI (2020) in mL /min/1.73 sq meters. Sodium 134(L) 136 - 145 mmol/L 01/31/2024 8:47 AM [facility] Potassium 4.5 3.4 - 5.3 mmol/L 01/31/2024 8:47 AM [facility] Chloride 100 98 - 107 mmol/L 01/31/2024 8:47 AM [facility] CO2 18(L) 22 - 33 mmol/L 01/31/2024 8:47 AM [facility] Anion Gap 16 7 - 17 01/31/2024 8:47 AM [facility] Calcium 9.0 8.7 - 10.5 mg/dL 01/31/2024 8:47 AM [facility] BUN/Creatinine Ratio 13 10.0 - 25.0 Ratio 01/31/2024 8:47 AM [facility] Blood specimen (specimen) (Plasma/Serum) 01/31/2024 6:55 AM EDT 01/31/2024 7:36 AM EDT Ky Adam DO LAB BLOOD ORDERABLES Performing Organization Address City/[facility]/ZIP Co de Phone Number [address] [address], [address] [address] * (ABNORMAL) Lipid Panel Reflex Direct LDL (09/18/2022 10:05 AM EST) Cholesterol, Total 183 <200 mg/dL [facility] Cholesterol, HDL 36(L) > OR = 40 mg/dL [facility] Triglycerides 172(H) <150 mg/dL [facility] LDL Cholesterol 118(H) mg/dL (calc) [facility] Comment: Reference range: <100 Desirable range <100 mg/dL for primary prevention; ?? <70 mg/dL for patients with CHD or diabetic patients with > or = 2 CHD risk factors. LDL-C is now calculated using the Johnathan-Churchill calculation, which is a validated novel method providing better accuracy than the Friedewald equation in the estimation of LDL-C. Johnathan SS et al. MARTHA. 2013;310(19): 7293-7998 (http://education.Motorator/faq/PCY500) Cholesterol/HDL Ratio 5.1(H) <5.0 (calc) [facility] Non HDL Chol. (LDL+VLDL) 147(H) <130 mg/dL (calc) [facility] Comment: For patients with diabetes plus 1 major ASCVD risk factor, treating to a non-HDL-C goal of <100 mg/dL (LDL-C of <70 mg/dL) is considered a therapeutic option. Blood specimen (specimen) 09/18/2022 10:05 AM EST 09/18/2022 10:07 AM EST Narrative [facility] - 09/19/2022 7:41 PM EST FASTING:YES FASTING: YES Adalid Correia MD LAB BLOOD ORDERABLES [facility] [address] [facility] ([address]) [place] [address] * Microalbumin, Creatinine, Urine, Random (09/18/2022 10:05 AM EST) Creatinine, Urine, Random 109 20 - 320 mg/dL [facility] Microalbumin, Urine, Random 1.9 See Note: mg/dL [facility] Comment: Reference Range: Reference Range Not established Microalbumin/Creat inine Ratio 17 <30 mcg/mg creat [facility] Comment: The ADA defines abnormalities in albumin excretion as follows: Albuminuria Category ?Result (mcg/mg creatinine) Normal to Mildly increased ?? <30 Moderately increased ? 30-299 Severely increased ? > OR = 300 The ADA recommends that at least two of three specimens collected within a 3-6 month period be abnormal before considering a patient to be within a diagnostic category. 09/18/2022 10:0 5 AM EST 09/18/2022 10:07 AM EST Narrative [facility] - 09/19/2022 7:41 PM EST FASTING:YES FASTING: YES Adalid Correia MD URINE ORDERABLES Performing Organization Address [facility] de Phone Number [facility] [address] [place] [address] (1) [place] [address] * HEPATITIS C VIRUS (HCV) ANTIBODY (09/18/2022 10:05 AM EST) Pathologist [facility] Hepatitis C Antibody NON-REACT AUREA NON-REACT AUREA [facility] Hepatitis C Antibody (s/co) <0.02 <1.00 [facility] Comment: HCV antibody was non-reactive. There is no laboratory evidence of HCV infection. In most cases, no further action is required. However, if recent HCV exposure is suspected, a test for HCV RNA (test code 50086) is suggested. For additional information please refer to http://education.LeCab/faq/PBQ51x0 (This link is being provided for informational/ educational purposes only.) 09/18/2022 10:0 5 AM EST 09/18/2022 10:07 AM EST Narrative [facility] - 09/19/2022 7:41 PM EST FASTING:YES FASTING: YES Adalid Correia MD LAB BLOOD ORDERABLES [facility] [address] [place] [address], (N[address]) [place] [address] * OPHTHALMOLOGY TESTING PROCEDURES (08/06/2021) External Provider HX AMB PROCEDURES from Last 3 Months or Most Recently Relevant to Health Maintenance Advance Directives * Full Code (Latest Code Status on File) Date Activated Date Inactivated Comments 01/31/2024 1:08 AM * Full Code Date Activated Date Inactivated Comments 2022 6:59 PM 09/21/2022 10:08 AM * Full Code Date Activated Date Inactivated Comments 04/03/2021 7:16 PM 11/23/2021 7:10 AM Care Teams Carpet Installer Helper Relationship Specialty Start Date End Date Ellis Roger MD [address] [place] [address] Manager Imaging Gastroenterology 01/07/24
--- OUTSIDE RECORDS SUMMARY | 2024-12-08 16:46 | XMS_ITS | Encounter Summary ---
Author Organization [employer] Address [address] [facility] [address] [place] [address] Care Team Providers Care Cook Fry Name Role Phone Eveline Iyer MD Primary Care Provider [phone] Encounter Details Date Type Department Care Team (Latest Contact Info) Description 12/08/2024 Travel Social History Tobacco Use Types Packs/Day Years Used Date Smoking Tobacco: Never Smokeless Tobacco: Never Alcohol Use Standard Drinks/Week Comments Never 0 (1 standard drink = 0.6 oz pur e alcohol) Depression Answer Date Recorded Patient Health Questionnaire-9 Score 0 05/26/2024 Patient Health Questionnaire-9 Score 0 05/26/2024 Last PHQ-9: Questionnaire Data Not on file 0 05/26/2024 Housing Stability Answer Date Recorded What is your housing situation today? I have oyel patterson 05/19/[address] you li ve. Do you have problems with any of the following? None of the above 05/19/2024 Food Insecurity Answer Date Recorded Within the past 12 months, y ou worried that your food would run out before you got money to buy more: Never True 05/19/2024 Within the past 12 months,th e food you bought just didn't last and you didn't have enough money to get more: Never True Transportation Answer Date Recorded In the past 12 months, has l ack of transportation kept you from medical appts, meetings, work or from getting things needed for daily living? No 05/19/2024 Utilities Answer Date Recorded In the past 12 months, has t he electric, gas, oil or water company threatened to shut off services in your home? No 05/19/2024 Depression Answer Date Recorded Patient Health Questionnaire-2 Score 0 05/26/2024 Internet Access Answer Date Recorded Internet Access Q1 Yes 05/19/2024 Internet Access Q2 Not on file 05/19/2024 Sex and Gender Information Value Date Recorded Sex Assigned at Male 03/10/2024 1:32 PM EDT Legal Sex Male 1:30 PM EDT Gender Identity Male 05/26/2024 8:27 AM EDT Sexual Orientation Straight 03/10/2024 1: 33 PM EDT documented as of this encounter Plan of Treatment Not on file documented as of this encounter Visit Diagnoses Not on filedocumented in this encounter Additional Health Concerns Assessment Noted Time PHQ-9 Depression Total Score: 0 05/26/20 9:17 AM EDT documented as of this encounter Care Teams Cook Fry Relationship Specialty Start Date End Date Eveline Iyer MD [address] [place] [address] PCP - General Family Medicine 05/26/24 documented as of this encounter
--- OUTSIDE RECORDS SUMMARY | 2024-12-08 16:47 | XMS_ITS | Encounter Summary ---
Author Organization [facility] Address [address] [place] [address] Care Team Providers Care Central Lab Technician Name Role Phone BillyColtBalaji Primary Care Provider [phone] Pcp, No Primary Care Provider Adaldi De La Vega MD Primary Care Provider [phone] Eugenio Onofre MD Unavailable [phone] Ellis Roger MD Unavailable [phone] Encounter Details Date Type Department Care Team (Late st Contact Info) Description 11/23/2021 Scanned Document [address] [id number] Provider, Generic Social History Tobacco Use Types Packs/Day Years Used Date Smoking Tobacco: Former Smokeless Tobacco: Never Comments:quit 7 years ago Alcohol Use Standard Drinks/Week Comments Yes 0 (1 standard drink = 0.6 oz pur e alcohol) occasionally PHQ-2 Answer Date Recorded PHQ-2 Total Score 0 04/22/2021 Sex and Gender Information Value Date Recorded Sex Assigned at Male 02/08/2023 3:06 PM EDT Gender Identity Male 02/08/2023 3:06 PM EDT Sexual Orientation Other 08/19/2023 9: 14 AM EST COVID-19 Exposure Response Date Recorded In the last month, have you been in contact with someone who was confirmed or suspected to have Coronavirus / COVID-19? No / Unsure 11/23/2021 7:10 AM EDT documented as of this encounter Plan of Treatment Not on file documented as of this encounter Visit Diagnoses Not on filedocumented in this encounter Additional Health Concerns Infection Onset Date Last Indicated Resolved Time R/O Respiratory Disease 01/30/2024 01/30/202409/2023 8:39 PM EDT documented as of this encounter Care Teams Central Lab Technician Relationship Specialty Start Date End Date Balaji Cervantes PCP - General Internal Medicine 07/04/21 04/02/22 Pcp, No PCP - General General Medicine 04/10/22 07/02/22 Adalid Correia MD PCP - General Family Medicine 07/03/22 09/12/24 Eugenio Onofre MD [address] [place] [address] Gastroenterology 02/08/23 01/06/24 Ellis Roger MD [address] [facility] [address]nd [place] [address] Emergency Room Registered Nurse Gastroenterology 01/07/24 documented as of this encounter
--- OUTSIDE RECORDS SUMMARY | 2024-12-08 16:47 | XMS_ITS | Clinical Summary ---
Author Organization [employer] Address [address] [facility] 7t [place] [address] Care Team Providers Care Program Advisor Name Role Phone Eveline Iyer MD Primary Care Provider [phone] Allergies Active Allergy Reactions Criticality Noted Date Comments Penicillins Shortness of breath High 04/03/2021 Medications ipratropium-a lbuterol (Duo-Neb) 0.5-2.5 mg/3 mL nebulizer solution Take 3 mL by nebulization if needed in the morning, at noon, and at bedtime for wheezing. 180 mL 3 05/26/20 24 Active albuterol 108 (90 Base) MCG/ACT inhaler Inhale 2 puffs every 6 (six) hours if needed for wheezing. 18 g 05/26/20 24 Active Breyna 80-4.5 MCG/ACT inhaler Inhale 2 puffs in the morning and at bedtime. Rinse mouth with water after use to reduce aftertaste and incidence of candidiasis. Do not swallow. 1 each 05/26/20 24 Active fenofibrate (Tricor) 54 MG tablet Take 1 tablet (54 mg) by mouth Once per day. 90 tablet 3 05/26/20 24 Active Multiple Vitamin tablet Take 1 tablet by mouth Once per day. 90 tablet 3 05/26/20 24 Active Aspirin Low Dose 81 MG EC tablet 02/01/20 24 Active budesonide-fo rmoterol (Symbicort) 160-4.5 MCG/ACT inhaler Inhale 2 puffs 2 times daily. 02/01/20 24 Active metFORMIN (Glucophage) 500 MG tablet Take 1 tablet (500 mg) by mouth with breakfast and with evening meal. 180 tablet 3 12/09/19 25 Active valsartan (Diovan) 80 MG tablet Take 1 tablet (80 mg) by mouth Once per day. 90 tablet 3 12/09/19 25 Active valsartan (Diovan) 80 MG tablet Take 1 tablet (80 mg) by mouth Once per day. 90 tablet 3 06/23/20 24 025 Discontinued(R eorder (will not trigger notification to Pharmacy)) metFORMIN (Glucophage) 1000 MG tablet Take 1 tablet (1,000 mg) by mouth with breakfast and with evening meal. 180 tablet 3 09/14/19 25 025 Discontinued(R eorder (will not trigger notification to Pharmacy)) cefpodoxime (Vantin) 200 MG tablet 02/01/20 24 025 Discontinued(T herapy completed) doxycycline (Vibramycin) 100 MG capsule TAKE 1 CAPSULE BY MOUTH TWICE DAILY DO NOT LIE DOWN FOR ONE HOUR AFTER TAKING AVOID SUNBATHING CAN CAUSE RASH AVOID TAKING MEDICINE WITH DAIRY AND IRON PRODUCTS 12/12/19 24 025 Discontinued(T herapy completed) predniSONE (Deltasone) 20 MG tablet 02/01/20 24 025 Discontinued(T herapy completed) Active Problems Problem Noted Date Diagnosed Date Class 2 obesity 12/08/2024 GUILLE (acute kidney injury) 01/31/2024 Essential hypertension 01/31/2024 Gastroesophageal reflux disease without esophagi tis 01/31/2024 Moderate persistent asthma with exacerbation 10/2023 Verruca vulgaris of lower extremity 03/11/2023 Mixed hyperlipidemia 07/03/2022 Right thyroid nodule 07/03/2022 Snoring 07/03/2022 Chest discomfort 2022 Diabetes mellitus type II, non insulin dependent 2022 Paresthesia of left arm 2022 Asthma 04/03/2021 Insomnia 04/03/2021 Scrotum, abscess 04/03/2021 Skin lesion 04/03/2021 Resolved Problems Problem Noted Date Diagnosed Date Resolved Date Hyponatremia 01/31/2024 05/26/2024 Hyperglycemia 04/03/2021 05/26/2024 Encounters Date Type Department Care Team Description 12/08/2024 3:45 PM EDT Office Visit [facility] [address] [place] [phone] Eveline Iyer MD Diabetes mellitus type II, non insulin dependent (CMS/HCC); Dietary counseling; Exercise counseling; Class 2 severe obesity with serious comorbidity and body mass index (BMI) of 38.0 to 38.9 in adult, unspecified obesity type ([facility]) 12/08/2024 Travel 11/29/2024 Patient Outreach [facility] [address] [place] [phone] Eveline Iyer MD 10/05/2024 Telephone [facility] [address] [place] [address] Juliann Leonard MA recall 09/14/2024 Orders Only [facility] [address] [place] [phone] Eveline Iyer MD from Last 3 Months Social History Tobacco Use Types Packs/Day Years Used Date Smoking Tobacco: Never Smokeless Tobacco: Never Tobacco Cessation:Counseling Given: Not Answered Alcohol Use Standard Drinks/Week Comments Never 0 (1 standard drink = 0.6 oz pur e alcohol) Depression Answer Date Recorded Patient Health Questionnaire-9 Score 0 05/26/2024 Patient Health Questionnaire-9 Score 0 05/26/2024 Last PHQ-9: Questionnaire Data Not on file 0 05/26/2024 Housing Stability Answer Date Recorded What is your housing situation today? I have yoel yesenia 05/19/[address] you li [...] Orientation Straight 03/10/2024 1: 33 PM EDT Last Filed Vital Signs Vital Sign Reading Time Taken Comments Blood Pressure 148/94 12/08/2024 3:44 PM EDT Pulse 74 12/08/2024 3:44 PM EDT Temperature 36.4 ??C (97.5 ??F) 12/08/2024 3:44 PM ED T Respiratory Rate 16 12/08/2024 3:44 PM EDT Oxygen Saturation 98% 12/08/2024 3:44 PM EDT Inhaled Oxygen Concentration - - Weight 113 kg (250 lb 3.2 oz) 12/08/2024 3:44 PM EDT Height 172.7 cm (5' 8 ) 12/08/2024 3:44 PM EDT Body Mass Index 38.04 12/08/2024 3:44 PM EDT Plan of Treatment Health Maintenance Due Date Last Done Comments CT Colonography 1977 FIT DNA/Cologuard 1977 FIT 1977 FOBT 1977 HIV Screening 1977 Sigmoidoscopy 1977 Diabetes: Foot Exam 1987 Eye Exam 1987 Family Planning (PISQ) 1992 Hepatitis C Screening 1995 DTaP/Tdap/Td Vaccines (1 - Tdap) 1996 Hepatitis B Vaccines (1 of 3 - 19+ 3-dose series) 1996 Pneumococcal Vaccine: Pediatrics (0 to 5 Years) and At-Risk Patients (6 to 49) Years) (1 of 2 - PCV) 1996 COVID-19 Vaccine (2 - 2023-2 5 season) 2024 07/03/2022 Influenza Vaccine (#1) 2024 Alcohol/Substance Use Screening 05/26/2025 05/26/2024 Depression Screening 05/26/2025 05/26/2024, 05/26/2024 Diabetes: Urine Protein Screening 05/26/2025 05/26/2024 Lipid Panel 05/26/2025 05/26/2024 Diabetes: Hemoglobin A1C 06/09/2025 025, 05/26/2024 SDOH Screening 11/29/2025 11/29/2024 Tobacco Screening 12/08/2025 12/08/2024 Zoster Vaccines (1 of 2) 2027 Colonoscopy 05/02/2029 Colorectal Cancer Screening 05/02/2029 RSV Patients and Patients Aged 60 years or older (1 - 1-dose 75+ series) 2052 HIB Vaccines Aged Out No longer eligi ble based on patient's age to complete this topic HPV Vaccines Aged Out No longer eligi ble based on patient's age to complete this topic Hepatitis A Vaccines Aged Out No long er eligible based on patient's age to complete this topic IPV Vaccines Aged Out No longer eligi ble based on patient's age to complete this topic Meningococcal Vaccine Aged Out No minoo christine eligible based on patient's age to complete this topic RSV under 20 months Aged Out No longe r eligible based on patient's age to complete this topic Rotavirus Vaccines Aged Out No longer eligible based on patient's age to complete this topic Procedures Procedure Name Priority Date/Time Associated Diagnosis Comments POCT GLYCATED HEMOGLOBIN, TOTAL Routine 12/08/2024 3:53 PM EDT Diabetes mellitus type II, non insulin dependent (CMS/HCC) POCT GLUCOSE Routine 12/08/2024 3:45 PM EDT Diabetes mellitus type II, non insulin dependent (CMS/HCC) ALBUMIN, RANDOM URINE W/CREATININE Routine 05/26/2024 9:58 AM EDT Diabetes mellitus type II, non insulin dependent (CMS/HCC) LIPID PANEL, STANDARD Routine 05/26/2024 9:58 AM EDT Diabetes mellitus type II, non insulin dependent (CMS/HCC) from Last 3 Months or Most Recently Relevant to Health Maintenance Results * POCT HGB A1C (12/08/2024 3:53 PM EDT) Hemoglobin A1C 5.5 4.0 - 6.0 % QC Media Lot # [id number] Lot# Expiration Date , Blood 12/08/2024 3:53 PM EDT us Eveline Iyer MD POINT OF CARE TEST ENTER/EDIT ORDERABLES Final Result * POCT Glucose (12/08/2024 3:45 PM EDT) Glucose Blood, POC 106 60 - 200 mg/dL QC Media Lot # [id number] Lot# Expiration Date Blood Capillary blood specimen / Unknown 12/08/2024 3:45 PM EDT Eveline Iyer MD POINT OF CARE TEST ENTER/EDIT ORDERABLES Final Result * Albumin, Random Urine W/Creatinine (05/26/2024 9:58 AM EDT) Creatinine, Urine 155.23 mg/dL [facility] Microalbumin Urine 35.0 mg/L [facility] Microalbum Creatinine Ratio Ur 22.5 <30 ug/mg cr [facility] Comment:Albumin/Creatinine R atio Reference Ranges: Normal: < 30 ug/mg creatinine Microalbuminuria: 30 - 300 ug/mg creatinineClinical Albuminuria: > 300 ug/mg creatinine Urine (Urine, Random) 05/26/2024 9:58 AM EDT 05/26/2024 11:12 AM EDT us Eveline Iyer MD LAB URINE ORDERABLES Final Res ult [facility] [address] [place] [phone] * (ABNORMAL) Lipid Panel, Standard (05/26/2024 9:58 AM EDT) Triglycerides 90 <150 mg/dL [facility] Comment:Desirable Triglyceri de: less than 150 mg/dLBorderline High Triglyceride 150-199 mg/dLHigh Triglyceride: 200-499 mg/dLVery High Triglyceride: greater than or equal to 5OO mg/dL Cholesterol 196 <200 mg/dL [facility] Comment:Desirable Cholestero l: less than 200 mg/dLBorderline High Cholesterol: 200-239 mg/dLHigh Cholesterol: greater than 239 mg/dL LDL Cholesterol Calculated 143(H) <100 mg/dL [facility] Comment:Desirable LDL: less than 100 mg/dLNear Optimal/Above Optimal LDL: 110- 129 mg/dLBorderline High LDL: 130-159 mg/dLHigh LDL: 160-189 mg/dLVery High LDL: greater than or equal to 190 mg/dL HDL Cholesterol 35(L) >40 mg/dL [facility] Comment:Desirable HDL: great er than 40 mg/dL Note: This HDL assay may give artificially low results in patients with liver disease. Blood Venous blood specimen / Unknown 05/26/2024 9:58 AM EDT 05/26/2024 11:16 AM EDT us Eveline Iyer MD LAB BLOOD ORDERABLES Final Res ult [facility] [address] [place] [phone] from Last 3 Months or Most Recently Relevant to Health Maintenance Insurance [facility] PPO Care Teams Program Advisor Relationship Specialty Start Date End Date Eveline Iyer MD [address] [place] [phone] PCP - General Family Medicine 05/26/24
--- OUTSIDE RECORDS SUMMARY | 2024-12-08 16:47 | XMS_ITS | Encounter Summary ---
Author Organization [facility] Address [address] [place] [address] Care Team Providers Care Patent Agent Name Role Phone BillyBalaji Primary Care Provider [phone] Pcp, No Primary Care Provider UnavailAdalid Edwards MD Primary Care Provider [phone] Eugenio Onofre MD Unavailable [phone] Ellis Roger MD Unavailable [phone] Encounter Details Date Type Department Care Team (Late st Contact Info) Description 09/19/2021 Prep for Surgery [facility] [place] [address] Jhonny Delarosa MD [address] [place] [address] Social History Tobacco Use Types Packs/Day Years [...] have Coronavirus / COVID-19? No / Unsure 09/11/2021 2:49 PM EST documented as of this encounter Plan of Treatment Not on file documented as of this encounter Visit Diagnoses Not on filedocumented in this encounter Additional Health Concerns Infection Onset Date Last Indicated Resolved Time R/O Respiratory Disease 01/30/2024 01/30/2024 06/0 09/2023 8:39 PM EDT documented as of this encounter Care Teams Patent Agent Relationship Specialty Start Date End Date Balaji Cervantes PCP - General Internal Medicine 07/04/21 04/02/22 Pcp, No PCP - General General Medicine 04/10/22 07/02/22 Adalid Correia MD PCP - General Family Medicine 07/03/22 09/12/24 Eugenio Onofre MD [address] [place] [address] Gastroenterology 02/08/23 01/06/24 Ellis Roger MD 1 [facility] 2nd [place] [address] Lyft Driver Gastroenterology 01/07/24 documented as of this encounter
--- OUTSIDE RECORDS SUMMARY | 2024-12-08 16:47 | XMS_ITS | Encounter Summary ---
Author Organization [facility] Address [address] [place] [address] Care Team Providers Care Junction Maker Name Role Phone Adalid Correia MD Primary Care Provider [phone] Eugenio Onofre MD Unavailable [phone] Ellis Roger MD Unavailable [phone] Reason for Visit * Reason Comments Medication Encounter Details Date Type Department Care Team (Late st Contact Info) Description 01/20/2023 Telephone [facility] [address] [place] [address] Adalid Correia MD [address] [place] [phone] Medication Social History Tobacco Use Types Packs/Day Years [...] Orientation Other 08/19/2023 9: 14 AM EST documented as of this encounter Plan of Treatment Not on file documented as of this encounter Visit Diagnoses Not on filedocumented in this encounter Additional Health Concerns Infection Onset Date Last Indicated Resolved Time R/O Respiratory Disease 01/30/2024 01/30/202409/2023 8:39 PM EDT documented as of this encounter Care Teams Junction Maker Relationship Specialty Start Date End Date Adalid Correia MD PCP - General Family Medicine 07/03/22 09/12/24 Eugenio Onofre MD [address] [place] [address] Gastroenterology 02/08/23 01/06/24 Ellis Roger MD [address] [facility] 2nd [place] [address] Electric Arc Furnace Operator Gastroenterology 01/07/24 documented as of this encounter
--- OUTSIDE RECORDS SUMMARY | 2024-12-08 16:47 | XMS_ITS | Encounter Summary ---
Author Organization [employer] Address [address] [facility] 7t [place] [address] Care Team Providers Care Tribal Council Member Name Role Phone Eveline Iyer MD Primary Care Provider [phone] Reason for Visit * Reason Comments Diabetes Hypertension Encounter Details Date Type Department Care Team ([facility] st Contact Info) Description 12/08/2024 3:45 PM EDT Office Visit [facility] [address] [place], [place] [phone] Eveline Iyer MD [address] [place], [place] [phone] Diabetes mellitus type II, non insulin dependent (CMS/HCC); Dietary counseling; Exercise counseling; Class 2 severe obesity with serious comorbidity and body mass index (BMI) of 38.0 to 38.9 in adult, unspecified obesity type (CMS/HCC) Social History Tobacco Use Types Packs/Day Years [...] your housing situation today? I have yoel patterson 05/19/[address] you [...] PM EDT documented as of this encounter Last Filed Vital Signs Vital Sign Reading [...] Mass Index 38.04 12/08/2024 3:44 PM EDT documented in this encounter Plan of Treatment Scheduled Orders Name Type Priority Associated Diagnoses Orde r Schedule Comprehensive Metabolic Panel Lab Routine Class 2 severe obesity with serious comorbidity and body mass index (BMI) of 38.0 to 38.9 in adult, unspecified obesity type (CMS/HCC) Expected: 12/08/2024 (Approximate), Expires: 12/08/2025 Hepatitis C Antibody with Reflex to HCV, RNA, Quantitative, Real-Time PCR Lab Routine Class 2 severe obesity with serious comorbidity and body mass index (BMI) of 38.0 to 38.9 in adult, unspecified obesity type (CMS/HCC) Expected: 12/08/2024, Expires: 12/08/2025 CBC auto differential Lab Routine Class 2 severe obesity with serious comorbidity and body mass index (BMI) of 38.0 to 38.9 in adult, unspecified obesity type (CMS/HCC) Expected: 12/08/2024 (Approximate), Expires: 12/08/2025 documented as of this encounter Procedures Procedure Name Priority Date/Time Associated Diagnosis Comments POCT GLYCATED HEMOGLOBIN, TOTAL Routine 12/08/2024 3:53 PM EDT Diabetes mellitus type II, non insulin dependent (CMS/HCC) POCT GLUCOSE Routine 12/08/2024 3:45 PM EDT Diabetes mellitus type II, non insulin dependent (CMS/HCC) documented in this encounter Results * POCT HGB A1C (12/08/2024 3:53 PM EDT) Hemoglobin A1C 5.5 4.0 - 6.0 % QC Media Lot # [id number] Lot# Expiration Date Blood 12/08/2024 3:53 PM EDT Eveline Iyer MD POINT OF CARE TEST ENTER/EDIT ORDERABLES Final Result * POCT Glucose (12/08/2024 3:45 PM EDT) Glucose Blood, POC 106 60 - 200 mg/dL QC Media Lot # [id number] Lot# Expiration Date Blood Capillary blood specimen / Unknown 12/08/2024 3:45 PM EDT us Eveline Iyer MD POINT OF CARE TEST ENTER/EDIT ORDERABLES Final Result documented in this encounter Visit Diagnoses Diagnosis Diabetes mellitus type II, non insulin dependent ([facility] [place]/HCC) Type II or unspecified type diabetes mellitus without mention of complication, not stated as uncontrolled Dietary counseling Dietary surveillance and counseling Exercise counseling Class 2 severe obesity with serious comorbidity and body mass index (BMI) of 38.0 to 38.9 in adult, unspecified obesity type (CMS/HCC) documented in this encounter Additional Health Concerns Assessment Noted Time PHQ-9 Depression Total Score: 0 05/26/20 9:17 AM EDT documented as of this encounter Care Teams Tribal Council Member Relationship Specialty Start Date End Date Eveline Iyer MD [address] [place] [phone] PCP - General Family Medicine 05/26/24 documented as of this encounter
--- OUTSIDE RECORDS SUMMARY | 2024-12-08 16:47 | XMS_ITS | Encounter Summary ---
Author Organization [facility] Address [address] [place] [address] Care Team Providers Care Machine Assembler Name Role Phone BillyColtBalaji Primary Care Provider [phone] Pcp, No Primary Care Provider Adalid De La Vega MD Primary Care Provider [phone] Eugenio Onofre MD Unavailable [phone] Ellis Roger MD Unavailable [phone] Encounter Details Date Type Department Care Team (Late st Contact Info) Description 01/23/2022 Scanned Document [address] [phone] Provider, Generic Social History Tobacco Use Types [...] Exposure Response Date Recorded In the last 10 days, have yo u been in contact with someone who was confirmed or suspected to have Coronavirus/COVID-19? No / Unsure 01/23/2022 6:41 AM EDT documented as of this encounter Plan of Treatment Not on file documented as of this encounter Visit Diagnoses Not on filedocumented in this encounter Additional Health Concerns Infection Onset Date Last Indicated Resolved Time R/O Respiratory Disease 01/30/2024 01/30/202409/2023 8:39 PM EDT documented as of this encounter Care Teams Machine Assembler Relationship Specialty Start Date End Date Balaji Cervantes PCP - General Internal Medicine 07/04/21 04/02/22 Pcp, No PCP - General General Medicine 04/10/22 07/02/22 dAalid Correia MD PCP - General Family Medicine 07/03/22 09/12/24 Eugenio Onofre MD [address] [place] [address] Gastroenterology 02/08/23 01/06/24 Ellis Roger MD 1 [facility] 2nd [place] [address] Garage Mechanic Gastroenterology 01/07/24 documented as of this encounter
--- OUTSIDE RECORDS SUMMARY | 2024-12-08 16:47 | XMS_ITS | Encounter Summary ---
Author Organization [employer] Address [address] [facility] 7t [place] [address] Care Team Providers Care Insurance Marketing Rep Name Role Phone Eveline Iyer MD Primary Care Provider [phone] Encounter Details Date Type Department Care Team (Late st Contact Info) Description 09/14/2024 Orders Only [facility] [address] [place], [place] [phone] Eveline Iyer MD [address] [place], [place] [phone] Social History Tobacco Use Types Packs/Day Years [...] is your housing situation today? I have yoelkirti patterson 05/19/[address] you [...] the past 12 months, has t he [employer], gas, oil or water company threatened to [...] documented as of this encounter Care Teams Insurance Marketing Rep Relationship Specialty Start Date End Date Eveline Iyer MD [address] [place] [id number] PCP - General Family Medicine 05/26/24 documented as of this encounter
[2024-12-08 17:45] LABS: MANUAL DIFF FLAG NO
[2024-12-08 18:00] LABS: Basophils Percent Auto 0.4 % (0-2); Eosinophils Absolute Auto 0.8 X10*3/uL (0.0-0.4); Eosinophils Percent Auto 7.4 % (0-4); Hematocrit 42.2 % (42.0-52.0); Hemoglobin 14.4 g/dl (14.0-18.0); Imm Gran Abs Auto 0.03 X10*3/uL (0.00-0.03); Imm Gran Pct Auto 0.3 % (0.0-0.4); Lymphocytes Absolute Auto 4.2 X10*3/uL (1.2-4.9); Lymphocytes Percent Auto 40.7 % (20-40); Mean Corpuscular HGB Conc 34.1 g/dl (31.0-36.0); Mean Corpuscular Hemoglobin 28.1 pg (27.0-33.0); Mean Corpuscular Volume 82.3 fL (80.0-98.0); Mean Platelet Volume 12.1 fL (9.4-12.4); Monocytes Absolute Auto 0.7 X10*3/uL (0.1-1.2); Monocytes Percent Auto 6.3 % (2-11); Neutrophils Absolute Auto 4.6 x10*3/uL (2.0-8.3); Neutrophils Percent Auto 44.9 % (45-73); Platelet Count 263 X10*3/uL (160-400); Red Blood Count 5.13 X10*6/uL (4.60-5.80); Red Cell Distribution Width 13.6 % (11.0-16.0); White Blood Count 10.2 X10*3/uL (4.8-10.8)
[2024-12-08 18:21] LABS: Alanine Aminotransferase 40 U/L (0-40); Albumin Level 4.4 g/dL (3.5-5.0); Alkaline Phosphatase 54 U/L (39-117); Anion Gap 12 (12-20); Aspartate Amino Transferase 27 U/L (5-37); Bilirubin Total 0.2 mg/dL (0.0-1.0); Blood Urea Nitrogen 21 mg/dL (9-16); Calcium 9.8 mg/dL (8.4-10.2); Carbon Dioxide 27 mmol/L (22-29); Chloride 106 mmol/L (96-108); Estimated Glomerular Filt Rate > 60; Glucose Random 94 mg/dL (60-115); Potassium 4.1 mmol/L (3.3-5.1); Sodium 141 mmol/L (135-145); Total Protein 7.5 g/dL (6.5-8.0)
[2024-12-11 08:34] LABS: ~HepC Num1 0.09 S/CO (0.00-0.79); ~Hepatitis C Antibody Nonreactive (Nonreactive)
== END 2024-12-08 16:44 | disposition home or self-care (01) ==
LOC: HO.HHCL 16:43
PROVIDERS: Visit Provider General Practice
DX: E66.812 Obesity, class 2 (principal); E66.01 Morbid (severe) obesity due to excess calories; Z68.38 Body mass index [BMI] 38.0-38.9, adult
CPT/HCPCS: 36415; 80053; 85025; 86803